=== PATIENT | female | born 1950 | race African-American/Black ===

== ENCOUNTER 2018-04-17 19:18 | Emergency (ER) | payer MEDICARE, BC ==
[~2018-04-17] VITALS: Ht 167.6 cm; Wt 81.6 kg
[2018-04-17 19:30] VITALS: BP 128/92
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
[2018-04-17 20:30] VITALS: BP 130/95
[2018-04-17 21:00] VITALS: BP 128/92
--- NOTE | 2018-04-18 12:27 | Cardiology Report ---
APPROVED REPORT EKG Measurement Heart [id number] MA [id number] Sinus tachycardia with occasional premature ventricular complexes Abnormal ECG
== END 2018-04-17 21:00 | disposition home or self-care (01) ==
LOC: EDBD 19:18 → EMR 20:25
DX: F41.9 Anxiety disorder, unspecified (principal); Z63.4 Disappearance and death of family member; R00.2 Palpitations; I10 Essential (primary) hypertension; J45.909 Unspecified asthma, uncomplicated; E11.9 Type 2 diabetes mellitus without complications
CPT/HCPCS: 93005; 99283

== ENCOUNTER 2019-08-04 06:50 | Emergency (ER) | payer MEDICARE, BC ==
[~2019-08-04] VITALS: Ht 167.6 cm; Wt 74.8 kg
--- NOTE | 2019-08-04 07:08 | NUR ---
Sadiq jordan in [facility] - 08/04/19 at 0712 by CHAYO AIDEN Mejia Note: Cassandra
--- NOTE | 2019-08-04 07:12 | NUR ---
ED Nurse Note: Patient walked in to ER c/o shakiness after taking her insulin shots early in the morning. Novolog 14 units. BS 201mg/dl. Patient able to ambulate without assistance. No shakiness noted at this time. No sweating noted. Patient alert and oriented with no episodes of confusions noted.
[2019-08-04 07:18] VITALS: BP_SYST 158; BP_SYST 159; BP_DIAS 74; BP_DIAS 81
--- NOTE | 2019-08-04 07:40 | Emergency Room Report ---
History of Present Illness General Chief Complaint: Substance Abuse Source: Patient Present Illness HPI 69-year-old female history of hypertension, diabetes accidentally took 14 of aspart she usually takes 2 of aspart she took this around 6:30 AM and ate breakfast she felt a little shaky, severity was moderate, constant, patient presents for evaluation for concerns of possible hypoglycemia. As an aside she wants her left hip looked at as well because she has pain when she walks Allergies: Coded Allergies: LATEX (Verified Allergy, Unknown, 08/04/19) Patient History Past Medical History: see triage record Last Menstrual Period: na Reviewed Nursing Documentation: PMH: Agreed; PSxH: Agreed Nursing Documentation-PMH Hx Hypertension: Yes Hx Asthma: Yes Hx Diabetes: Yes Review of Systems All Other Systems: negative except mentioned in HPI Physical Exam Vital Signs Date Time Temp Pulse Resp B/P (MAP) Pulse Ox O2 Delivery O2 Flow Rate FiO2 08/04/19 06:52 98.8 104 18 158/81 (106) 98 Room Air General Appearance: well appearing, no apparent distress Head: normocephalic, atraumatic ENT: hearing grossly normal, normal voice Neck: full range of motion, supple Respiratory: no respiratory distress, speaking full sentences Musculoskeletal: other - Left hip: Gait normal, full range of motion intact, tenderness to palpation along the greater trochanter, 5 out of 5 flexion extension of the left hip Neurologic: alert, normal gait Psychiatric: mood/affect normal Skin: no rash Medical Decision Making Diagnostic Impression: Primary Impression: Insulin adverse reaction Qualified Codes: T38.3X5A - Adverse effect of insulin and oral hypoglycemic [ antidiabetic] drugs, initial encounter Additional Impression: Left hip pain ER Course 69 year-old female took too much insulin, short acting, peak effect 84 minutes, she was observed in the ED, glucose shows 204, patient given food in the ED Unremarkable observation. Patient also with left hip pain, x-ray shows chronic degenerative changes, cane provided Other X-Ray Diagnostic Results Other X-Ray Diagnostic Results : X-Ray ordered: Left hip, pelvis # of Views/Limited Vs Complete: 3 View Indication: Pain EP Interpretation: Yes Interpretation: no fractures Impression: No acute disease Electronically Signed by: Sachin Espinal MD Last Vital Signs Date Time Temp Pulse Resp B/P (MAP) Pulse Ox O2 Delivery O2 Flow Rate FiO2 08/04/19 07:30 96 18 Room Air 08/04/19 07:18 98.8 158/81 98 Disposition: HOME, SELF-CARE Condition: Stable Referrals: NON PHYSICIAN (PCP) [facility] Connor Sarabia [facility] Patient Instructions: Hip Bursitis, [id number], Hypoglycemia, [id number], Insulin Aspart injection Additional Instructions: The patient was provided with discharge instructions, notified to follow-up with a primary care doctor and or specialist in the next 24-48 hours, and to return to the ED if they have worsening of their symptoms. Please note that this report is being documented using [employer] technology. This can lead to erroneous entry secondary to incorrect interpretation by the dictating instrument. Sachin Espinal MD Aug 04, 2019 07:40
--- NOTE | 2019-08-04 07:55 | NUR ---
ED Nurse Note: Patient went back to her room after x-ray
--- NOTE | 2019-08-04 08:01 | NUR ---
ED Nurse Note: Patient laying in bed, daughter at bedside, talking to her daughter. Food provided. No s/sx of hypoglycemia/hyperglycemia noted. No shakiness noted.
[2019-08-04 08:08] VITALS: BP 130/62
--- NOTE | 2019-08-04 08:17 | NUR ---
ED Nurse Note: Patient went to the x-ray room via wheelchair
[2019-08-04 09:17] VITALS: BP 140/69
--- NOTE | 2019-08-04 09:18 | NUR ---
ED Nurse Note: Juice was provided to pt per IVANA's verbal order after BS 119 was notified. Pt cleared by health care Provider for discharge. DC instructions/prescription was given and explained to pt and verbalized understanding of teachings.Cane was provided to pt. All medical deviecs such as ID band removed. Pt is AAO x4, ambulatory and left with all personal belongings.
--- NOTE | 2019-08-04 11:45 | Diagnostic Imaging Report ---
Indications: Left hip pain Findings: Two views of the left hip were obtained. No acute fracture is demonstrated. Alignment of the hip is within normal limits. Soft tissues are unremarkable. The bones are osteopenic. There are degenerative changes noted at the lower part of the lumbar spine. The sacrum is obscured by bowel gas and stool. Impression: Negative for acute injury.
== END 2019-08-04 09:19 | disposition home or self-care (01) ==
LOC: EMR 07:20
DX: T38.3X5A Adverse effect of insulin and oral hypoglycemic [antidiabetic] drugs, initial encounter (principal); I10 Essential (primary) hypertension; E11.9 Type 2 diabetes mellitus without complications; J45.909 Unspecified asthma, uncomplicated; Z91.040 Latex allergy status; M25.552 Pain in left hip; Y92.9 Unspecified place or not applicable
CPT/HCPCS: 73502; 82962; 99283